=== PATIENT | male | born 1970 | race Caucasian/White ===

== ENCOUNTER 2022-06-29 07:55 | Outpatient (CLI) | payer BC | END 2022-06-29 07:56 | disposition home or self-care (01) | LOC: CSHMRI 07:55 | PROVIDERS: ATTEND Orthopaedic Surgery | DX: M23.92 Unspecified internal derangement of left knee (principal); S83.232A Complex tear of medial meniscus, current injury, left knee, initial encounter; M23.301 Other meniscus derangements, unspecified lateral meniscus, left knee; S83.8X2A Sprain of other specified parts of left knee, initial encounter; M94.8X6 Other specified disorders of cartilage, lower leg ==